=== PATIENT | male | born 1990 | race Caucasian/White ===

== ENCOUNTER 2022-07-17 20:24 | Emergency (ER) | payer OTHER ==
[~2022-07-17] VITALS: Ht 180.3 cm; Wt 87.4 kg
[~2022-07-17 20:24] MED LIST: ERYTHROMYCIN250 MG PO; NORCO 5-325 TA1 EACH PO; OXYCODONE-ACET1 EAC1 PO
[2022-07-17] MEDS ORDERED: BACTRIM DS TAB1 EACH PO (21:31)
== END 2022-07-17 21:52 | disposition home or self-care (01) ==
LOC: ED 20:24
DX: J02.9 Acute pharyngitis, unspecified (principal); F17.200 Nicotine dependence, unspecified, uncomplicated; Z88.0 Allergy status to penicillin; Z88.8 Allergy status to other drugs, medicaments and biological substances; Z20.822 Contact with and (suspected) exposure to COVID-19
CPT/HCPCS: 87880; 99283; A9270